=== PATIENT | male | born 1995 | race African-American/Black ===

== ENCOUNTER 2018-12-25 23:46 | Emergency (ER) | payer MEDICAID ==
[~2018-12-25] VITALS: Ht 175.3 cm; Wt 72.7 kg
[2018-12-26 00:16] VITALS: BP 128/73
== END 2018-12-26 00:58 | disposition home or self-care (01) ==
LOC: EMS 23:52
DX: G25.71 Drug induced akathisia (principal); V49.9XXA Car occupant (driver) (passenger) injured in unspecified traffic accident, initial encounter; W22.19XA Striking against or struck by other automobile airbag, initial encounter; Y93.89 Activity, other specified; Y92.488 Other paved roadways as the place of occurrence of the external cause; Y99.8 Other external cause status